=== PATIENT | female | born 1980 | race Caucasian/White ===

== ENCOUNTER 2017-08-15 18:08 | Emergency (ER) | payer MEDICAID ==
[~2017-08-15] VITALS: Ht 167.6 cm; Wt 108.2 kg
[2017-08-15 18:42] VITALS: Ht 167.6 cm; Wt 108.2 kg
[2017-08-15 20:16] VITALS: BP 119/75
== END 2017-08-15 20:16 | disposition home or self-care (01) ==
LOC: ED 18:08
DX: S82.61XA Displaced fracture of lateral malleolus of right fibula, initial encounter for closed fracture (principal); Z87.81 Personal history of (healed) traumatic fracture; X50.1XXA Overexertion from prolonged static or awkward postures, initial encounter; Y93.89 Activity, other specified; Y99.8 Other external cause status; Y92.89 Other specified places as the place of occurrence of the external cause
CPT/HCPCS: Q0092

== ENCOUNTER 2019-09-04 09:07 | Emergency (ER) | payer OTHER, SELFPAY ==
[~2019-09-04] VITALS: Ht 167.6 cm; Wt 99.3 kg
[2019-09-04 09:14] VITALS: BP 136/88; Ht 167.6 cm; Wt 99.3 kg
== END 2019-09-04 09:47 | disposition home or self-care (01) ==
LOC: ED 09:07
DX: Z20.828 Contact with and (suspected) exposure to other viral communicable diseases (principal)